=== PATIENT | female | born 1965 | race Caucasian/White ===

== ENCOUNTER 2017-08-08 12:13 | Outpatient (CLI) | payer BC ==
[2017-08-08] VITALS (21 sets, daily range): BP systolic 97–120; BP diastolic 55–81
== END 2017-08-08 23:59 | disposition home or self-care (01) ==
LOC: CARD DIAG 12:13
PROVIDERS: ATTEND Family Medicine
DX: R42 Dizziness and giddiness (principal); R55 Syncope and collapse
CPT/HCPCS: 93660